=== PATIENT | female | born 1980 | race Caucasian/White ===

== ENCOUNTER 2021-11-16 12:43 | Outpatient (CLI) | payer BC | END 2021-11-16 12:44 | disposition home or self-care (01) | LOC: BICRAD 12:43 | PROVIDERS: ATTEND Family Medicine | DX: M17.0 Bilateral primary osteoarthritis of knee (principal) ==

== ENCOUNTER 2022-06-10 09:30 | Outpatient (CLI) | payer BC | END 2022-06-10 09:31 | disposition home or self-care (01) | LOC: TBSIIMAG 09:30 | PROVIDERS: ATTEND Neurological Surgery | DX: M43.16 Spondylolisthesis, lumbar region (principal); M43.17 Spondylolisthesis, lumbosacral region; M43.07 Spondylolysis, lumbosacral region; M47.816 Spondylosis without myelopathy or radiculopathy, lumbar region; M46.06 Spinal enthesopathy, lumbar region; M51.37 Other intervertebral disc degeneration, lumbosacral region; M89.38 Hypertrophy of bone, other site; M51.36 Other intervertebral disc degeneration, lumbar region | CPT/HCPCS: 72110; 72148 ==

== ENCOUNTER 2022-07-11 14:25 | Outpatient (CLI) | payer BC ==
[2022-07-11 15:29] LABS: Hemoglobin 12.7 g/dL (12.0-15.5); Mean Platelet Volume 10.5 fl (7.4-10.4); Platelet Count 291 10x3/uL (150-450); Red Blood Cell (RBC) Count 3.97 10x6/uL (3.90-5.03); White Blood Cell (WBC) Count 5.5 10x3/uL (3.5-10.5)
[2022-07-11 15:49] LABS: Anion Gap 11 mmol/L (10-20); BUN (Urea Nitrogen) 15 mg/dL (7.0-18.7); Calc. Creatinine Clearance 0 mL/min (70-130); Calcium 9.3 mg/dL (7.8-10.44); Carbon Dioxide 27 mmol/L (22-29); Chloride 103 mmol/L (98-107); Estimated GFR 92; Glucose 86 mg/dL (70-105); Potassium 4.4 mmol/L (3.5-5.1); Sodium 137 mmol/L (136-145)
[2022-07-11 16:00] LABS: BHCG - Serum Negative (NEGATIVE); Pregs Control Background? CLEAR/WHITE (CLR/WHITE); Pregs Control Bar Appear? YES (CONTROL BAR)
== END 2022-07-11 14:26 | disposition home or self-care (01) ==
LOC: LABBT 14:25
PROVIDERS: ATTEND Neurological Surgery
DX: Z01.818 Encounter for other preprocedural examination (principal); M43.16 Spondylolisthesis, lumbar region
CPT/HCPCS: 80048; 84703; 85027; 93005; 93010

== ENCOUNTER 2022-07-18 07:05 | Day surgery (SDC) | payer BC ==
[2022-07-15 13:56] VITALS: BMI 24.1
[2022-07-18] MEDS ORDERED: Scopolamine 1.5 mg/72 hour Patch ONE (09:13)
[2022-07-18] MEDS ORDERED: Vancomycin 1 GM VIAL ONE (09:14)
[2022-07-18] MEDS ORDERED: Thrombin 5000 UNITS/5 ML VIAL ONE (09:14)
[2022-07-18] MEDS ORDERED: Dexmedetomidine 200 MCG/2 ML VIAL ONE (09:17)
[2022-07-18] MEDS ORDERED: fentaNYL PF 100 MCG/2 ML SYRINGE ONE (09:17)
[2022-07-18] MEDS ORDERED: Famotidine/PF 20 mg/2ml Vial ONE (09:18)
[2022-07-18] MEDS ORDERED: CEFAZOLIN 2 GM VIAL ONE (09:18)
[2022-07-18] MEDS ORDERED: Sodium Chloride 0.9% 100 ML ONE (09:18)
[2022-07-18] MEDS ORDERED: MINERAL OIL/WHITE PETROLATUM 3.5 GM TUBE ONE (09:28)
[2022-07-18] MEDS ORDERED: Rocuronium Bromide 10 MG/ML (10ML VIAL) ONE (09:29)
[2022-07-18] MEDS ORDERED: Dexamethasone 20 MG/5 ML VIAL ONE (09:29)
[2022-07-18] MEDS ORDERED: Ketorolac Tromethamine 30 MG/ML VIAL ONE (09:29)
[2022-07-18] MEDS ORDERED: Ondansetron PF 4 MG/2 ML Vial ONE (09:29)
[2022-07-18] MEDS ORDERED: PROPOFOL 200 MG/20 ML VIAL ONE (09:29)
[2022-07-18] MEDS ORDERED: NEOSTIGMINE 3 MG/3 ML SYR 3 MG/3 ML SYRINGE ONE (09:29)
[2022-07-18] MEDS ORDERED: Glycopyrrolate 0.2 MG/ML 5 ML SYRINGE ONE (09:29)
[2022-07-18] MEDS ORDERED: Lidocaine 1% PF 5 ML VIAL ONE (09:29)
[2022-07-18] MEDS ORDERED: ePHEDrine 50 MG/ML VIAL ONE (09:29)
[2022-07-18] MEDS ORDERED: HYDROmorphone 0.5 MG/0.5 ML SYRINGE ONE ×2 (11:16→11:29)
[2022-07-18] MEDS ORDERED: Fentanyl 100 MCG/2 ML VIAL ONE (11:42)
[2022-07-18] MEDS ORDERED: Acetaminophen/Codeine 30-300mg Tablet ONE (13:22)
== END 2022-07-18 17:05 | disposition home or self-care (01) ==
LOC: SDC 07:05
PROVIDERS: ATTEND Neurological Surgery
PROC: 0SG3071 Fusion of Lumbosacral Joint with Autologous Tissue Substitute, Posterior Approach, Posterior Column, Open Approach (ICD-10-PCS; principal; 2022-07-18)
DX: M43.17 Spondylolisthesis, lumbosacral region (principal); Z79.899 Other long term (current) drug therapy
CPT/HCPCS: C1713; C1768; C1776; J1100; J1170; J1885; J2405; J2704; J3010; J3370; J3490; S0028

== ENCOUNTER 2022-08-01 10:12 | Outpatient (CLI) | payer BC | END 2022-08-01 10:13 | disposition home or self-care (01) | LOC: TBSIIMAG 10:12 | PROVIDERS: ATTEND Physician Assistant | DX: M54.16 Radiculopathy, lumbar region (principal); M47.816 Spondylosis without myelopathy or radiculopathy, lumbar region; Z98.890 Other specified postprocedural states | CPT/HCPCS: 72100 ==

== ENCOUNTER 2022-08-19 13:21 | Outpatient (CLI) | payer BC | END 2022-08-19 13:22 | disposition home or self-care (01) | LOC: TBSIIMAG 13:21 | PROVIDERS: ATTEND Physician Assistant | DX: M43.16 Spondylolisthesis, lumbar region (principal); M47.816 Spondylosis without myelopathy or radiculopathy, lumbar region; N28.89 Other specified disorders of kidney and ureter; Z98.890 Other specified postprocedural states | CPT/HCPCS: 72100 ==

== ENCOUNTER 2022-09-21 14:55 | Outpatient (CLI) | payer BC | END 2022-09-21 14:56 | disposition home or self-care (01) | LOC: TBSIIMAG 14:55 | PROVIDERS: ATTEND Neurological Surgery | DX: M43.16 Spondylolisthesis, lumbar region (principal); M47.817 Spondylosis without myelopathy or radiculopathy, lumbosacral region; Z98.1 Arthrodesis status | CPT/HCPCS: 72100 ==